=== PATIENT | female | born 1945 | race Caucasian/White ===

== ENCOUNTER 2019-06-07 20:57 | Emergency (ER) | payer MEDICARE, OTHER ==
[2019-06-07] MEDS ORDERED: Lidocaine 1% (PF) 30 ML VIAL ONE (21:24)
[2019-06-07] MEDS ORDERED: Bacitracin 1 PK ONE (21:24)
--- NOTE | 2019-06-07 21:46 | RAD ---
XR Elbow Lt 2 View HISTORY: Injury, left elbow pain. Laceration FINDINGS: No fracture or dislocation is identified. No radiopaque foreign bodies identified.
== END 2019-06-07 22:15 | disposition home or self-care (01) ==
LOC: NAV ERS 20:57
DX: S51.012A Laceration without foreign body of left elbow, initial encounter (principal); I10 Essential (primary) hypertension; E03.9 Hypothyroidism, unspecified; W25.XXXA Contact with sharp glass, initial encounter
CPT/HCPCS: 12004; J2001

== ENCOUNTER 2019-06-16 13:38 | Outpatient (CLI) | payer MEDICARE, OTHER ==
--- NOTE | 2019-06-16 14:21 | RAD ---
TWO VIEWS LEFT HIP: 06/16/19 COMPARISON: None. HISTORY: Left hip pain. FINDINGS: Two views of the left hip shows no evidence of acute fracture or dislocation. No degenerative changes are seen. Hardware is seen in the lumbar spine. IMPRESSION: No evidence of acute osseous abnormality. POS: [facility]
--- NOTE | 2019-06-16 14:28 | RAD ---
RIGHT HIP TWO VIEWS: 06/16/19 INDICATION: History of right hip pain. COMPARISON: None. FINDINGS: There is mild osteoarthrosis of the right hip. No acute fracture or subluxation evident. Moderate de generative change seen involving the right SI joint. IMPRESSION: No acute osseous abnormality. Degenerative changes as above. POS: [facility]
--- NOTE | 2019-06-16 14:32 | RAD ---
LUMBAR SPINE FOUR VIEWS: 06/16/19 INDICATION: History of low back pain. COMPARISON: None. FINDINGS: There is a bone stimulator overlying the lower aspect of the lumbar spine. There is posterolateral sp inal instrumentation spanning L2 through S1. There is an anterior facet screw involving the anterior sacral promontory. There is intervertebral cages seen at L2-3, L3-4, and L4-5. There is interbody bon e graft at L5-S1. Instrumentation projects in the expected position without gross evidence of complic ation. Laminectomy changes are seen at L3 and L4. There is advanced disc degenerative disease at L1-2 . There is moderate degenerative change of the SI joints. IMPRESSION: 1. Postoperative lumbar spine with moderate adjacent segment degeneration at L1-2. 2. Moderate SI joint osteoarthritis. POS: [facility]
== END 2019-06-16 13:39 | disposition home or self-care (01) ==
LOC: NAV RAD 13:38
PROVIDERS: ATTEND Family Medicine
DX: M25.551 Pain in right hip (principal); M25.552 Pain in left hip; M54.5 Low back pain; Z98.890 Other specified postprocedural states; M47.898 Other spondylosis, sacral and sacrococcygeal region; M51.36 Other intervertebral disc degeneration, lumbar region; M16.11 Unilateral primary osteoarthritis, right hip
CPT/HCPCS: 72100